=== PATIENT | male | born 1945 | race Caucasian/White ===

== ENCOUNTER 2018-02-02 09:44 | Emergency (ER) | payer BC, MEDICARE ==
[2018-02-02] MEDS ORDERED: Sodium Chloride 0.9% 1000 ML 1,000 ML IV STA (10:13)
--- NOTE | 2018-02-02 10:21 | ERPHSYRPT ---
- History of Present Illness Time Seen by Provider: 02/02/18 10:15 Source: patient Exam Limitations: no limitations Patient Subjective Stated Complaint: pt co dizzness with head pain all over, states he also feels shaky, tingling,pt is currenty being treated for diverticulitis Triage Nursing Assessment: pt walked in, gait steady,skin w/d/p, resp easy, abd soft no edma Physician History: 72-year-old white male arrives with complaint of feeling dizzy when he moves his head states he has a headache when he moves his head symptoms going on since yesterday no fevers. Patient is on Cipro and Flagyl secondary to diverticulitis.. Patient does have a history of chronic pain however he was taken off of his narcotic analgesia in July patient and his spouse states that his family doctor did not want him on this anymore (oxycodone ) past medical history includes COPD, coronary artery disease, diverticulitis, GERD, prostate problems Past surgical history includes cysts right shoulder EGD cholecystectomy Timing/Duration: yesterday Severity: moderate Modifying Factors: Improves With: nothing. Worsens With: other Associated Symptoms: headaches, other (dizzy and headache moves his head around) , No nausea, No vomiting, No shortness of breath, No heartburn, No diaphoresis, No cough, No chest pain, No fever, No loss of appetite, No malaise, No rash, No syncope, No seizure, No weakness Allergies/Adverse Reactions: No Known Drug Allergies Allergy (Verified 02/02/18 09:58) Home Medications: Omeprazole 20 MG [Prilosec 20 mg] 20 mg PO BID 05/20/15 [History] Tamsulosin HCl 0.4 mg [Flomax 0.4 MG] 0.4 mg PO HS 05/20/15 [History] Atorvastatin Calcium [Atorvastatin Calcium] 40 mg DAILY 02/02/18 [History] Ciprofloxacin [Cipro 500 MG] 500 mg BID 02/02/18 [History] Isosorbide Mononitrate [Isosorbide Mononitrate ER] 30 mg DAILY 02/02/18 [History ] Metronidazole [Metronidazole] 500 mg QID 02/02/18 [History] Ondansetron HCl [Ondansetron HCl] 4 mg TID 02/02/18 [History] Primidone [Primidone] 50 mg BID 02/02/18 [History] Hx Tetanus, Diphtheria Vaccination/Date Given: Yes Hx Influenza Vaccination/Date Given: No Hx Pneumococcal Vaccination/Date Given: No - Review of Systems Constitutional: No Fever, No Chills Eyes: No Symptoms Ears, Nose, & Throat: No Symptoms Respiratory: No Cough, No Dyspnea Cardiac: No Chest Pain, No Edema, No Syncope Abdominal/Gastrointestinal: No Abdominal Pain, No Nausea, No Vomiting, No Diarrhea Genitourinary Symptoms: No Dysuria Musculoskeletal: No Back Pain, No Neck Pain Skin: No Rash Neurological: Dizziness, Headache, No Focal Weakness, No Gait Changes, No Irritability, No Lethargy, No Paralysis, No Parasthesia, No Seizure, No Sensory Changes, No Speech Changes, No Tics, No Tremors, No Vertigo Psychological: No Symptoms Endocrine: No Symptoms All Other Systems: Reviewed and Negative - Past Medical History Pertinent Past Medical History: Yes Neurological History: Other ENT History: No Pertinent History Cardiac History: No Pertinent History, Coronary Artery Disease Respiratory History: Bronchitis, COPD Endocrine Medical History: No Pertinent History GI Medical History: Diverticulitis, GERD, Other History: No Pertinent History Psycho-Social History: No Pertinent History Male Reproductive Disorders: Prostate Problems 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 - Past Surgical History Past Surgical History: No Neuro Surgical History: No Pertinent History Cardiac: No Pertinent History Respiratory: No Pertinent History Gastrointestinal: No Pertinent History Genitourinary: No Pertinent History Musculoskeletal: No Pertinent History Male Surgical History: No Pertinent History Other Surgical History: cyst removed from right shoulder and face.colonoscopy and egd - Social History Smoking Status: Current every day smoker How long have you smoked: 60 years Exposure to second hand smoke: Yes Alcohol Use: Socially Drug Use: none Patient Lives Alone: No Significant Family History: other (mother diabetes and hypertension father cancer) - Nursing Vital Signs Nursing Vital Signs: Initial Vital Signs Temperature 97.7 F 02/02/18 09:52 Pulse Rate 72 02/02/18 09:52 Respiratory Rate 18 02/02/18 09:52 Blood Pressure 152/91 02/02/18 09:52 O2 Sat by Pulse Oximetry 99 02/02/18 09:52 Pain Scale Pain Intensity 8 - Physical Exam General Appearance: no apparent distress, alert Eye Exam: PERRL/EOMI, eyes nml inspection Ears, Nose, Throat Exam: normal ENT inspection, TMs normal, pharynx normal, moist mucous membranes Neck Exam: normal inspection, non-tender, supple, full range of motion Respiratory Exam: normal breath sounds, lungs clear, No respiratory distress Cardiovascular Exam: regular rate/rhythm, normal heart sounds, normal peripheral pulses Gastrointestinal/Abdomen Exam: soft, normal bowel sounds, No tenderness, No mass Back Exam: normal inspection, normal range of motion, No CVA tenderness, No vertebral tenderness Extremity Exam: normal inspection, normal range of motion, pelvis stable Neurologic Exam: alert, oriented x 3, cooperative, charge manager II-XII nml as tested, normal mood/affect, nml cerebellar function, nml station & gait, sensation nml, No motor deficits, No sensory deficit, No disoriented, No confusion, No agitation, No uncooperative, No intoxicated appearance, No depressed mood/affect , No motor weakness, No facial droop, No slurred speech, No aphasia, No dysarthria, No abnormal gait, No abnormal cerebellar tests, No abnormal charge manager II- XII, No EOM palsy Skin Exam: normal color, warm, dry, No rash Lymphatic Exam: No adenopathy SpO2 Interpretation: normal (99%) SpO2: 99 Oxygen Delivery: Room Air - Course Nursing assessment & vital signs reviewed: Yes EKG Interpreted by Me: RATE, Sinus Rhythm, NORMAL AXIS, Other (EKG: Sinus rhythm , 71 bpm, normal axis, no acute ST or T wave changes noted) - CT Exams Head CT Interpretation: Tele-radiologist Report (head CT: Impression: 1. No acute intracranial abnormality. 2. Volume loss greater than expected for age query any history of alcohol abuse or certain medications such as dilantin. 3 atherosclerotic vascular disease) Ordered Tests: Active Orders 24 hr Category Date Time Status Accucheck STAT Care 02/02/18 10:13 Active EKG-ER Only STAT Care 02/02/18 10:13 Active IV Insertion STAT Care 02/02/18 10:13 Active Orthostatic Vital Signs STAT Care 02/02/18 10:13 Active HEAD WITHOUT CONTRAST [CT] Stat Exams 02/02/18 10:13 Taken CBC W DIFF Stat Lab 02/02/18 10:30 Completed CMP Stat Lab 02/02/18 10:30 Completed ETHYL ALCOHOL Stat Lab 02/02/18 10:30 Completed SED RATE [Erythrocyte Sedimentation Rate] Stat Lab 02/02/18 10:30 Completed UA W/ MICROSCOPIC Stat Lab 02/02/18 10:50 Results Medication Summary Generic Name Dose Route Start Last Admin Trade Name Kiley PRN Reason Stop Dose Admin Meclizine HCl 12.5 mg 02/02/18 11:33 Antivert 25 Mg PO 02/02/18 11:34 STAT ONE Discontinued Medications Generic Name Dose Route Start Last Admin Trade Name Kiley PRN Reason Stop Dose Admin Sodium Chloride 1,000 mls @ 999 mls/hr 02/02/18 10:13 02/02/18 10:48 Sodium Chloride 0.9% 1000 Ml IV 02/02/18 11:13 999 mls/hr .Q1H1M STA Administration Sodium Chloride Confirm 02/02/18 10:46 Sodium Chloride 0.9% 1000 Ml Administered 02/02/18 10:47 Dose 1,000 mls @ ud .ROUTE .STK-MED ONE Lab/Rad Data: Laboratory Result Diagrams 02/02/18 10:30 02/02/18 10:30 Laboratory Results 02/02/18 02/02/18 02/02/18 Range/Units 10:50 10:30 10:30 WBC (4.0-10.5) K/mm3 RBC (4.1-5.6) M/mm3 Hgb (12.5-18.0) gm/dl Hct (42-50) % MCV (78-100) fl MCH (26-32) pg MCHC (32-36) g/dl RDW (11.5-14.0) % Plt Count (150-450) K/mm3 MPV (6-9.5) fl Gran % (36.0-66.0) % Eos # (Auto) (0-0.5) Absolute Lymphs (auto) (1.0-4.6) Absolute Monos (auto) (0.0-1.3) Lymphocytes % (24.0-44.0) % Monocytes % (0.0-12.0) % Eosinophils % (0.00-5.0) % Basophils % (0.0-0.4) % Absolute Granulocytes (1.4-6.9) Basophils # (0-0.4) ESR 3 (0-15) mm/hr Sodium 136 L (137-145) mmol/L Potassium 4.0 (3.5-5.1) mmol/L Chloride 101 (98-107) mmol/L Carbon Dioxide 27 (22-30) mmol/L Anion Gap 11.4 (5-15) MEQ/L BUN 8 L (9-20) mg/dL Creatinine 0.86 (0.66-1.25) mg/dL Estimated GFR > 60.0 ML/MIN Glucose 95 (74-106) mg/dL Calcium 8.9 (8.4-10.2) mg/dL Total Bilirubin 0.50 (0.2-1.3) mg/dL AST 30 (17-59) U/L ALT 27 (0-50) U/L Alkaline Phosphatase 47 (38-126) U/L Serum Total Protein 6.1 L (6.3-8.2) g/dL Albumin 3.4 L (3.5-5.0) g/dL Ur Collection Type CCMS Urine Color YELLOW (YELLOW) Urine Appearance CLEAR (CLEAR) Urine pH 5.0 (5-6) Ur Specific [place] 1.010 (1.005-1.025) Urine Protein NEGATIVE (Negative) Urine Ketones NEGATIVE (NEGATIVE) Urine Blood NEGATIVE (0-5) Bob/ul Urine Nitrite NEGATIVE (NEGATIVE) Urine Bilirubin NEGATIVE (NEGATIVE) Urine Urobilinogen NORMAL (0-1) mg/dL Ur Leukocyte Esterase TRACE (NEGATIVE) Urine Culture Reflexed Pending Urine Glucose NEGATIVE (NEGATIVE) mg/dL Ethyl Alcohol < 10 (0-10) mg/dL Specimen Received 1050 02/02/18 02/02/18 Range/Units 10:30 WBC 4.3 (4.0-10.5) K/mm3 RBC 4.62 (4.1-5.6) M/mm3 Hgb 15.2 (12.5-18.0) gm/dl Hct 44.0 (42-50) % MCV 95.2 (78-100) fl MCH 32.9 H (26-32) pg MCHC 34.5 (32-36) g/dl RDW 15.4 H (11.5-14.0) % Plt Count 253 (150-450) K/mm3 MPV 9.7 H (6-9.5) fl Gran % 66.7 H (36.0-66.0) % Eos # (Auto) 0.03 (0-0.5) Absolute Lymphs (auto) 0.75 L (1.0-4.6) Absolute Monos (auto) 0.59 (0.0-1.3) Lymphocytes % 17.6 L (24.0-44.0) % Monocytes % 13.8 H (0.0-12.0) % Eosinophils % 0.7 (0.00-5.0) % Basophils % 1.2 (0.0-0.4) % Absolute Granulocytes 2.85 (1.4-6.9) Basophils # 0.05 (0-0.4) ESR (0-15) mm/hr Sodium (137-145) mmol/L Potassium (3.5-5.1) mmol/L Chloride (98-107) mmol/L Carbon Dioxide (22-30) mmol/L Anion Gap (5-15) MEQ/L BUN (9-20) mg/dL Creatinine (0.66-1.25) mg/dL Estimated GFR ML/MIN Glucose (74-106) mg/dL Calcium (8.4-10.2) mg/dL Total Bilirubin (0.2-1.3) mg/dL AST (17-59) U/L ALT (0-50) U/L Alkaline Phosphatase (38-126) U/L Serum Total Protein (6.3-8.2) g/dL Albumin (3.5-5.0) g/dL Ur Collection Type Urine Color (YELLOW) Urine Appearance (CLEAR) Urine pH (5-6) Ur Specific [place] (1.005-1.025) Urine Protein (Negative) Urine Ketones (NEGATIVE) Urine Blood (0-5) Bob/ul Urine Nitrite (NEGATIVE) Urine Bilirubin (NEGATIVE) Urine Urobilinogen (0-1) mg/dL Ur Leukocyte Esterase (NEGATIVE) Urine Culture Reflexed Urine Glucose (NEGATIVE) mg/dL Ethyl Alcohol (0-10) mg/dL Specimen Received - Progress Progress: improved Progress Note: 02/02/18 10:19 72-year-old white male arrives with complaint of feeling dizzy headache symptoms since yesterday. Although he states he has the dizziness and headache with moving his head around he moves his head around wildly while describing his symptoms and does not appear to be in acute distress. Patient is on Flagyl and Cipro secondary to diverticulitis. Will go ahead and obtain CT head sedimentation rates CBC CMP EKG provide IV fluids. Will consider a dose of morphine if necessary. I did review the patient's inspect report looks like he had been on narcotic analgesia from February 26 of last year to July 09 of last year and he states that his family doctor did not want him to continue on this. Will see how patient does after IV fluids. 02/02/18 11:34 Patient's labs all essentially normal sedimentation rate within normal limits. Head CT greater volume loss than would be expected for age consider prior Dilantin use or alcohol use. Otherwise no acute changes on head CT. Patient states he still feels a headache. Will give patient morphine 4 mg IV Plan home with Antivert. Follow-up with patient's family doctor. - Departure Time of Disposition: 11:35 Departure Disposition: Home Clinical Impression: Dizziness Headache Qualifiers: Headache type: unspecified Headache chronicity pattern: acute headache Intractability: not intractable Qualified Code(s): R51 - Headache Condition: Fair Critical Care Time: No Referrals: NEGRO MARTINS MD [Primary Care Provider] - Instructions: Vertigo (a Type of Dizziness) (DC) Additional Instructions: Return home. Plenty of fluids. Tylenol every 4 hours as needed for headache. Antivert 25 mg orally three times a day as needed for dizziness. Follow-up with your family doctor call and arrange an appointment. Return for acute distress or for severe symptoms. Prescriptions: Meclizine HCl 25 mg [Antivert 25 mg] 25 mg PO TID PRN #20 tablet
[2018-02-02 10:39] LABS: BASOPHIL % 1.2 % (0.0-0.4); Basophil (Absolute #) 0.05 (0-0.4); Eosinophil % 0.7 % (0.00-5.0); Eosinophil (Absolute #) 0.03 (0-0.5); Granulocyte Absolute (ANC) 2.85 (1.4-6.9); Granulocytes % 66.7 % (36.0-66.0); Hemoglobin 15.2 gm/dl (12.5-18.0); Lymphocyte (Absolute #) 0.75 (1.0-4.6); Lymphocytes % 17.6 % (24.0-44.0); Mean Cell Volume 95.2 fl (78-100); Mean Corpuscular Hemoglobin 32.9 pg (26-32); Mean Corpuscular Hgb Concent. 34.5 g/dl (32-36); Mean Platelet Volume 9.7 fl (6-9.5); Monocyte (Absolute #) 0.59 (0.0-1.3); Monocytes % 13.8 % (0.0-12.0); Platelet Count 253 K/mm3 (150-450); Red Blood Count 4.62 M/mm3 (4.1-5.6); Red Cell Distribution Width 15.4 % (11.5-14.0); White Blood Count 4.3 K/mm3 (4.0-10.5)
[2018-02-02] MEDS ORDERED: Sodium Chloride 0.9% 1000 ML 1,000 ML ONE (10:46)
[2018-02-02 10:50] LABS: ALBUMIN 3.4 g/dL (3.5-5.0); ALKALINE PHOSPHATASE 47 U/L (38-126); ANION GAP 11.4 MEQ/L (5-15); BLOOD UREA NITROGEN 8 mg/dL (9-20); CHLORIDE 101 mmol/L (98-107); Calcium 8.9 mg/dL (8.4-10.2); Carbon Dioxide 27 mmol/L (22-30); Creatinine 1 0.86 mg/dL (0.66-1.25); Glucose 95 mg/dL (74-106); SGOT/AST 30 U/L (17-59); SGPT/ALT 27 U/L (0-50); SODIUM 136 mmol/L (137-145); Total Protein 6.1 g/dL (6.3-8.2)
[2018-02-02 10:52] LABS: ETHYL ALCOHOL < 10 mg/dL (0-10)
[2018-02-02 10:56] LABS: Appearance CLEAR (CLEAR)
[2018-02-02 10:57] LABS: Bilirubin NEGATIVE (NEGATIVE); Blood NEGATIVE Ery/ul (0-5); Glucose NEGATIVE (NEGATIVE); Ketones NEGATIVE (NEGATIVE); Leukocyte Esterase TRACE (NEGATIVE); Nitrite NEGATIVE (NEGATIVE); Protein,Urine Dip NEGATIVE (Negative); Urobilinogen NORMAL mg/dL (0-1)
[2018-02-02] MEDS ORDERED: ANTIVERT 25 MG PO ONE (11:33)
[2018-02-02] MEDS ORDERED: MORPHINE SULFATE 4 MG INJ IV ONE (11:33)
[2018-02-02] MEDS ORDERED: MORPHINE SULFATE 4 MG INJ ONE (11:36)
[2018-02-02] MEDS ORDERED: ANTIVERT 25 MG ONE (11:36)
[2018-02-02 11:37] LABS: Bacteria FEW /HPF (NEGATIVE); Epithelial Cells FEW /HPF (FEW); Mucus SLIGHT /HPF (NEGATIVE); WBC 0-2 /HPF (0-5)
[2018-02-02 12:54] VITALS: BP 122/75; PULSE 61; O2SAT 95
--- NOTE | 2018-02-02 19:18 | XRAY ---
Indication: Headache and dizziness. Multiple contiguous axial images obtained through the head without contrast. Comparison: None Age-appropriate global atrophy and minimal periventricular degenerative micro-ischemia bilaterally. No acute intracranial hemorrhage, abnormal extra-axial fluid collection, or mass effect. Fourth ventricle is midline without hydrocephalus. Bony calvarium intact. Mild mucosal thickening of both ethmoid sinuses. Mastoid air cells are clear. Impression: Nonacute senile brain. Incidental paranasal sinus disease. Comment: Preliminary interpretation was made by [facility]. No discrepancy. CTDI 69.52
== END 2018-02-02 12:53 | disposition home or self-care (01) ==
LOC: ED 09:44
DX: R42 Dizziness and giddiness (principal); R51 Headache; Z79.899 Other long term (current) drug therapy; K57.92 Diverticulitis of intestine, part unspecified, without perforation or abscess without bleeding
CPT/HCPCS: 36415; 70450; 80053; 80307; 81000; 82962; 85025; 85652; 93005; 96360; 96372; 99284; J2270; A9270-GY; G0480

== ENCOUNTER 2018-02-25 05:42 | Day surgery (SDC) | payer BC, MEDICARE ==
[2018-02-25] MEDS ORDERED: Ketamine HCl 50 MG/ML IJ ONE (05:43)
[2018-02-25] MEDS ORDERED: DIPRIVAN 200 MG/20 ML IV ONE (05:43)
[2018-02-25] MEDS ORDERED: Lactated Ringers 1,000 ML IV SCH (06:30)
[2018-02-25 09:01] VITALS: BP 142/65; PULSE 72
[2018-02-25 09:04] VITALS: O2SAT 99
--- NOTE | 2018-02-25 09:45 | OP ---
SURGERY DATE: 02/25/18 SURGERY TIME: 724 PREOPERATIVE DIAGNOSIS: 1. ABDOMINAL PAIN. POSTOPERATIVE DIAGNOSIS: 1. SESSILE POLYP IN THE SIGMOID COLON. PROCEDURE: 1. Colonoscopy. SURGEON: Dr. Moisés Pena. ANESTHESIA: MAC by Emil Nino CRNA. SPECIMENS: 1. Cold forceps polypectomy of sigmoid colon. ESTIMATED BLOOD LOSS: Minimal. DESCRIPTION OF PROCEDURE: After informed written consent was obtained, the patient was taken to the endoscopy suite. He underwent monitored anesthesia and a digital rectal exam showed normal sphincter tone and no internal lesions. The scope was inserted in the rectum and sequentially the entire colonic mucosa was traversed. The level of the cecum was reached and verified with direct visualization of the ileocecal valve. Upon withdrawal, careful mucosal inspection revealed no gross abnormalities other than a small sessile polyp in the sigmoid colon region. It was grasped with forceps and removed in its entirety with minimal bleeding. The remainder of the exam was unremarkable upon withdrawal. Retroflexion showed no obvious internal lesions. There were some mild internal hemorrhoids noted. The scope was removed and the patient was transferred to the recovery room in good condition.
== END 2018-02-25 08:50 | disposition home or self-care (01) ==
LOC: SDC 05:42
PROVIDERS: ATTEND Family Medicine
DX: R10.9 Unspecified abdominal pain (principal); K63.5 Polyp of colon
CPT/HCPCS: 88305; 99100; J2704

== ENCOUNTER 2018-09-09 09:55 | Observation (INO) | payer BC, MEDICARE ==
[2018-09-09] MEDS ORDERED: DUONEB 0.5-3 MG/3 ml Neb IH ONE (10:18)
[2018-09-09] MEDS: DUONEB 0.5-3 MG/3 ml Neb IH SCH ×4 (10:22→23:55)
[2018-09-09 10:30] LABS: Lactic Acid 2.9 (0.4-2.0)
[2018-09-09] MEDS: solu-MEDROL 125 MG IV SCH ×2 (11:01→17:42)
[2018-09-09] MEDS: ENOXAPARIN SODIUM SQ SCH (11:18)
[2018-09-09] MEDS: TYLENOL 325 MG PO PRN (11:18)
[2018-09-09] MEDS: ROCEPHIN 1 Gm-D5w 50 ml Bag** 1 G/50 ML IVPB IV SCH (11:18)
[2018-09-09] MEDS: Sodium Chloride 0.9% 1000 ML 1,000 ML IV SCH (11:18)
--- NOTE | 2018-09-09 11:21 | XRAY ---
Indication: Acute exacerbation COPD. Comparison: January 15, 2018. PA/lateral chest again demonstrates COPD and CIPD. Remaining heart and lungs unremarkable. Bony thorax intact again with mild degenerative changes. Impression: Stable nonacute chest with chronic features.
[2018-09-09 11:26] LABS: BASOPHIL % 0.3 % (0.0-0.4); Basophil (Absolute #) 0.02 (0-0.4); Eosinophil (Absolute #) 0 (0-0.5); Granulocyte Absolute (ANC) 5.75 (1.4-6.9); Granulocytes % 78.4 % (36.0-66.0); Hematocrit 46.3 % (42-50); Hemoglobin 16.1 gm/dl (12.5-18.0); Lymphocyte (Absolute #) 0.63 (1.0-4.6); Lymphocytes % 8.6 % (24.0-44.0); Mean Cell Volume 98.3 fl (78-100); Mean Corpuscular Hemoglobin 34.2 pg (26-32); Mean Corpuscular Hgb Concent. 34.8 g/dl (32-36); Mean Platelet Volume 9.7 fl (6-9.5); Monocyte (Absolute #) 0.93 (0.0-1.3); Monocytes % 12.7 % (0.0-12.0); Platelet Count 181 K/mm3 (150-450); Red Blood Count 4.71 M/mm3 (4.1-5.6); Red Cell Distribution Width 15.5 % (11.5-14.0); White Blood Count 7.3 K/mm3 (4.0-10.5)
[2018-09-09 11:34] LABS: INFLUENZA A NEGATIVE (NEGATIVE); INFLUENZA B NEGATIVE (NEGATIVE)
[2018-09-09 11:36] LABS: RESPIRATORY SYNCTIAL VIRUS POSITIVE (Negative)
[2018-09-09 11:42] LABS: ALBUMIN 3.9 g/dL (3.5-5.0); ALKALINE PHOSPHATASE 74 U/L (38-126); BLOOD UREA NITROGEN 12 mg/dL (9-20); CHLORIDE 96 mmol/L (98-107); Calcium 8.9 mg/dL (8.4-10.2); Carbon Dioxide 28 mmol/L (22-30); Creatinine 1 0.89 mg/dL (0.66-1.25); Glucose 117 mg/dL (74-106); Potassium 4.5 mmol/L (3.5-5.1); SGOT/AST 24 U/L (17-59); SGPT/ALT 24 U/L (0-50); SODIUM 133 mmol/L (137-145); Total Protein 6.6 g/dL (6.3-8.2)
[2018-09-09] MEDS: Zithromax 500 MG/ 250 ML NaCl Premix 500 MG/250 ML IVPB IV SCH (12:52)
[2018-09-09] MEDS ORDERED: Sodium Chloride 0.9% 500 ML 500 ML IV ONE (13:19)
[2018-09-09 13:26] LABS: ANION GAP 13.5 MEQ/L (5-15)
[2018-09-09 15:24] LABS: Lactic Acid 3.4 (0.4-2.0)
[2018-09-09] MEDS ORDERED: Sodium Chloride 0.9% 1000 ML 1,000 ML IV STA (16:20)
[2018-09-09] MEDS ORDERED: Advair Hfa 230/21 Mcg COMMON CANISTER IH SCH (19:00)
[2018-09-09] MEDS: ADVAIR 500-50 DISKUS IH SCH (19:47)
[2018-09-09] MEDS ORDERED: NON-FORMULARY ITEM (Omeprazole 20 Mg [Prilosec 20 Mg] 20 MG) PO SCH (22:00)
[2018-09-09] MEDS: Flomax 0.4 MG PO SCH (22:28)
[2018-09-09] MEDS: ECOTRIN 81 MG PO SCH (22:29)
[2018-09-09] MEDS: Protonix 40MG Tablet PO SCH (22:29)
[2018-09-09] MEDS: Proscar 5 MG PO SCH (22:29)
[2018-09-09] MEDS: MYSOLINE 50MG PO SCH (22:29)
[2018-09-09] MEDS: ZOCOR 20MG PO SCH (22:29)
[2018-09-10] MEDS: Sodium Chloride 0.9% 1000 ML 1,000 ML IV SCH ×3 (00:16→21:58)
[2018-09-10] MEDS: solu-MEDROL 125 MG IV SCH ×4 (00:20→18:43)
[2018-09-10] MEDS: TYLENOL 325 MG PO PRN ×2 (00:20→16:13)
[2018-09-10] MEDS: DUONEB 0.5-3 MG/3 ml Neb IH SCH ×6 (04:15→23:47)
[2018-09-10] MEDS: Spiriva 18 Mcg/Cap Inhaler IH SCH (07:02)
[2018-09-10] MEDS: ADVAIR 500-50 DISKUS IH SCH ×2 (07:02→19:30)
--- NOTE | 2018-09-10 07:51 | PCM.NOTE ---
Date and Time: 09/10/18 0749 Subjective Assessment: patient reports he is feeling better with his breathing, he feels anxious and is shaking. tylenol not helping with headache Objective Exam General Appearance: no apparent distress, thin Neurologic Exam: alert, oriented x 3 Skin Exam: normal color, warm, dry Respiratory Exam: prolonged expirations, wheezing Cardiovascular Exam: regular rate/rhythm, normal heart sounds Gastrointestinal/Abdomen Exam: soft, No tenderness, No mass Extremity Exam: normal inspection, normal range of motion OBJECTIVE DATA Vital Signs: Vital Signs - 24 hr Temp Pulse Resp BP Pulse Ox 09/10/18 07:29 97.9 F 92 H 20 151/88 94 L 09/10/18 07:08 94 H 20 92 L 09/10/18 04:15 96 H 18 94 L 09/10/18 04:00 97.2 F 88 19 138/82 95 09/10/18 00:00 97.7 F 80 16 133/82 94 L 09/09/18 23:55 90 20 97 09/09/18 20:00 98.1 F 87 19 122/75 96 09/09/18 19:47 82 19 96 09/09/18 16:00 98.3 F 88 20 110/66 94 L 09/09/18 15:03 86 22 93 L 09/09/18 12:00 97.8 F 84 20 98/71 95 09/09/18 10:42 97.8 F 84 20 98/71 95 09/09/18 10:29 84 20 95 Pain Assessment - Last Documented Pain Intensity 5 Pain Scale Used 0-10 Pain Scale Intake and Output: Intake & Output 09/07/18 09/08/18 09/09/18 09/10/18 11:59 11:59 11:59 11:59 Intake Total 4236 Output Total 1800 Balance 2436 Weight 50.1 kg Lab Results: Lab Results-Last 24 Hours 09/09/18 09/09/18 09/09/18 Range/Units 10:30 10:30 10:30 WBC (4.0-10.5) K/mm3 RBC (4.1-5.6) M/mm3 Hgb (12.5-18.0) gm/dl Hct (42-50) % MCV (78-100) fl MCH (26-32) pg MCHC (32-36) g/dl RDW (11.5-14.0) % Plt Count (150-450) K/mm3 MPV (6-9.5) fl Gran % (36.0-66.0) % Eos # (Auto) (0-0.5) Absolute Lymphs (auto) (1.0-4.6) Absolute Monos (auto) (0.0-1.3) Lymphocytes % (24.0-44.0) % Monocytes % (0.0-12.0) % Eosinophils % (0.00-5.0) % Basophils % (0.0-0.4) % Absolute Granulocytes (1.4-6.9) Basophils # (0-0.4) Sodium 133 L (137-145) mmol/L Potassium 4.5 (3.5-5.1) mmol/L Chloride 96 L (98-107) mmol/L Carbon Dioxide 28 (22-30) mmol/L Anion Gap 13.5 (5-15) MEQ/L BUN 12 (9-20) mg/dL Creatinine 0.89 (0.66-1.25) mg/dL Estimated GFR > 60.0 ML/MIN Glucose 117 H (74-106) mg/dL Lactic Acid 2.9 H (0.4-2.0) Calcium 8.9 (8.4-10.2) mg/dL Total Bilirubin 0.80 (0.2-1.3) mg/dL AST 24 (17-59) U/L ALT 24 (0-50) U/L Alkaline Phosphatase 74 (38-126) U/L Serum Total Protein 6.6 (6.3-8.2) g/dL Albumin 3.9 (3.5-5.0) g/dL Influenza Type A Ag NEGATIVE (NEGATIVE) Influenza Type B Ag NEGATIVE (NEGATIVE) RSV (PCR) POSITIVE (Negative) 09/09/18 09/09/18 09/10/18 Range/Units 11:15 15:20 06:32 WBC 7.3 (4.0-10.5) K/mm3 RBC 4.71 (4.1-5.6) M/mm3 Hgb 16.1 (12.5-18.0) gm/dl Hct 46.3 (42-50) % MCV 98.3 (78-100) fl MCH 34.2 H (26-32) pg MCHC 34.8 (32-36) g/dl RDW 15.5 H (11.5-14.0) % Plt Count 181 (150-450) K/mm3 MPV 9.7 H (6-9.5) fl Gran % 78.4 H (36.0-66.0) % Eos # (Auto) 0 (0-0.5) Absolute Lymphs (auto) 0.63 L (1.0-4.6) Absolute Monos (auto) 0.93 (0.0-1.3) Lymphocytes % 8.6 L (24.0-44.0) % Monocytes % 12.7 H (0.0-12.0) % Eosinophils % 0.0 (0.00-5.0) % Basophils % 0.3 (0.0-0.4) % Absolute Granulocytes 5.75 (1.4-6.9) Basophils # 0.02 (0-0.4) Sodium (137-145) mmol/L Potassium (3.5-5.1) mmol/L Chloride (98-107) mmol/L Carbon Dioxide (22-30) mmol/L Anion Gap (5-15) MEQ/L BUN (9-20) mg/dL Creatinine (0.66-1.25) mg/dL Estimated GFR ML/MIN Glucose (74-106) mg/dL Lactic Acid 3.4 H 2.0 (0.4-2.0) Calcium (8.4-10.2) mg/dL Total Bilirubin (0.2-1.3) mg/dL AST (17-59) U/L ALT (0-50) U/L Alkaline Phosphatase (38-126) U/L Serum Total Protein (6.3-8.2) g/dL Albumin (3.5-5.0) g/dL Influenza Type A Ag (NEGATIVE) Influenza Type B Ag (NEGATIVE) RSV (PCR) (Negative) Radiology Exams: Radiology Procedures Category Date Time Status CHEST 2 VIEWS (PA AND LAT) Routine Exams 09/09/18 10:30 Completed Assessment/Plan (1) Acute exacerbation of chronic obstructive pulmonary disease (COPD) Current Visit: Yes Status: Acute Assessment & Plan: improving, still has audible wheezing. continue current management. shaking and anxiety likely exacerbated by albuterol and steroids. Code(s): J44.1 - CHRONIC OBSTRUCTIVE PULMONARY DISEASE W (ACUTE) EXACERBATION
[2018-09-10] MEDS: xanAX 0.5 MG PO PRN ×3 (09:21→21:48)
[2018-09-10] MEDS: MYSOLINE 50MG PO SCH ×2 (09:21→21:47)
[2018-09-10] MEDS: Protonix 40MG Tablet PO SCH ×2 (09:21→21:48)
[2018-09-10] MEDS: Zithromax 500 MG/ 250 ML NaCl Premix 500 MG/250 ML IVPB IV SCH (09:21)
[2018-09-10] MEDS: MOTRIN 600 MG PO PRN ×2 (09:21→21:48)
[2018-09-10] MEDS: Flomax 0.4 MG PO SCH ×2 (09:21→21:47)
[2018-09-10] MEDS ORDERED: Imdur 30 MG PO SCH (10:00)
[2018-09-10] MEDS: ROCEPHIN 1 Gm-D5w 50 ml Bag** 1 G/50 ML IVPB IV SCH (10:33)
[2018-09-10] MEDS: ENOXAPARIN SODIUM SQ SCH (11:48)
[2018-09-10] MEDS: ECOTRIN 81 MG PO SCH (21:47)
[2018-09-10] MEDS: ZOCOR 20MG PO SCH (21:47)
[2018-09-10] MEDS: Proscar 5 MG PO SCH (21:48)
[2018-09-11] MEDS: solu-MEDROL 125 MG IV SCH ×2 (01:17→06:10)
[2018-09-11] MEDS: DUONEB 0.5-3 MG/3 ml Neb IH SCH ×2 (03:59→07:08)
[2018-09-11] MEDS: xanAX 0.5 MG PO PRN (05:17)
[2018-09-11] MEDS: MOTRIN 600 MG PO PRN (05:17)
[2018-09-11 06:09] LABS: BASOPHIL % 0.1 % (0.0-0.4); Basophil (Absolute #) 0.01 (0-0.4); Eosinophil (Absolute #) 0 (0-0.5); Granulocyte Absolute (ANC) 10.82 (1.4-6.9); Granulocytes % 93.9 % (36.0-66.0); Hematocrit 39.6 % (42-50); Hemoglobin 13.6 gm/dl (12.5-18.0); Lymphocyte (Absolute #) 0.28 (1.0-4.6); Lymphocytes % 2.4 % (24.0-44.0); Mean Cell Volume 98.8 fl (78-100); Mean Corpuscular Hemoglobin 33.9 pg (26-32); Mean Corpuscular Hgb Concent. 34.3 g/dl (32-36); Mean Platelet Volume 10.5 fl (6-9.5); Monocyte (Absolute #) 0.42 (0.0-1.3); Monocytes % 3.6 % (0.0-12.0); Platelet Count 194 K/mm3 (150-450); Red Blood Count 4.01 M/mm3 (4.1-5.6); Red Cell Distribution Width 15.8 % (11.5-14.0); White Blood Count 11.5 K/mm3 (4.0-10.5)
[2018-09-11 06:23] LABS: ALBUMIN 2.9 g/dL (3.5-5.0); ALKALINE PHOSPHATASE 55 U/L (38-126); ANION GAP 9.4 MEQ/L (5-15); BLOOD UREA NITROGEN 12 mg/dL (9-20); CHLORIDE 101 mmol/L (98-107); Calcium 8.3 mg/dL (8.4-10.2); Carbon Dioxide 23 mmol/L (22-30); Creatinine 1 0.43 mg/dL (0.66-1.25); Glucose 130 mg/dL (74-106); Potassium 3.9 mmol/L (3.5-5.1); SGOT/AST 18 U/L (17-59); SGPT/ALT 22 U/L (0-50); SODIUM 130 mmol/L (137-145); Total Protein 5.3 g/dL (6.3-8.2)
[2018-09-11] MEDS: ADVAIR 500-50 DISKUS IH SCH (07:08)
[2018-09-11] MEDS: Spiriva 18 Mcg/Cap Inhaler IH SCH ×2 (07:08→07:09)
[2018-09-11 07:22] VITALS: PULSE 75; O2SAT 96
[2018-09-11 07:59] VITALS: BP 161/88
--- NOTE | 2018-09-11 08:56 | PCM.DS ---
Discharge Summary Date of Admission: 09/09/18 10:08 Admitting Physician: NEGRO MARTINS Primary Care Provider: NEGRO MARTINS Allergies Allergies No Known Drug Allergies Allergy (Verified 02/02/18 09:58) Hospital Summary - Hospital Course Hospital Course: patient was admitted form office with cough, wheezing and severe shortness of breath. doing much better, no oxygen required, he is tolerating po and cough/ wheezing are substantially better. - Vitals & Intake/Output Vital Signs: Vital Signs Temperature 98.2 F 09/11/18 07:58 Pulse Rate 75 09/11/18 07:58 Respiratory Rate 20 09/11/18 07:58 Blood Pressure 161/88 09/11/18 07:58 O2 Sat by Pulse Oximetry 96 09/11/18 07:58 Intake & Output: Intake & Output 09/08/18 09/09/18 09/10/18 09/11/18 11:59 11:59 11:59 11:59 Intake Total 4716 4487 Output Total 1800 1600 Balance 2916 2887 Weight 50.1 kg - Lab Result Diagrams: 09/11/18 05:50 09/11/18 05:50 Lab Results-Last 24 Hrs: Lab Results-Last 24 Hours 09/11/18 09/11/18 Range/Units 05:50 05:50 WBC 11.5 H (4.0-10.5) K/mm3 RBC 4.01 L (4.1-5.6) M/mm3 Hgb 13.6 (12.5-18.0) gm/dl Hct 39.6 L (42-50) % MCV 98.8 (78-100) fl MCH 33.9 H (26-32) pg MCHC 34.3 (32-36) g/dl RDW 15.8 H (11.5-14.0) % Plt Count 194 (150-450) K/mm3 MPV 10.5 H (6-9.5) fl Gran % 93.9 H (36.0-66.0) % Eos # (Auto) 0 (0-0.5) Absolute Lymphs (auto) 0.28 L (1.0-4.6) Absolute Monos (auto) 0.42 (0.0-1.3) Lymphocytes % 2.4 L (24.0-44.0) % Monocytes % 3.6 (0.0-12.0) % Eosinophils % 0.0 (0.00-5.0) % Basophils % 0.1 (0.0-0.4) % Absolute Granulocytes 10.82 H (1.4-6.9) Basophils # 0.01 (0-0.4) Sodium 130 L (137-145) mmol/L Potassium 3.9 (3.5-5.1) mmol/L Chloride 101 (98-107) mmol/L Carbon Dioxide 23 (22-30) mmol/L Anion Gap 9.4 (5-15) MEQ/L BUN 12 (9-20) mg/dL Creatinine 0.43 L (0.66-1.25) mg/dL Estimated GFR > 60.0 ML/MIN Glucose 130 H (74-106) mg/dL Calcium 8.3 L (8.4-10.2) mg/dL Total Bilirubin 0.30 (0.2-1.3) mg/dL AST 18 (17-59) U/L ALT 22 (0-50) U/L Alkaline Phosphatase 55 (38-126) U/L Serum Total Protein 5.3 L (6.3-8.2) g/dL Albumin 2.9 L (3.5-5.0) g/dL Slides for Path Review Micro Results-Entire Visit: Microbiology 09/09/18 10:30 Blood Culture - Preliminary Blood NO GROWTH TO DATE 09/09/18 10:50 Blood Culture - Preliminary Blood NO GROWTH TO DATE - Radiology Exams Ordered Rad Exams-Entire Visit: Radiology Procedures Category Date Time Status CHEST 2 VIEWS (PA AND LAT) Routine Exams 09/09/18 10:30 Completed - Procedures and Test Procedures and Tests throughout Hospitalization: Therapy Orders & Screens 09/09/18 10:28 Respiratory Therapy Assessment DAILY Comment: Diagnosis: AE COPD 09/09/18 10:29 Peak Expiratory Flow Rate ONCE Comment: Reason For Exam: Diagnosis: AE COPD 09/09/18 10:30 Respiratory Nebulizer Q4H Comment: duonebs 2.5/0.5mg INH Diagnosis: AE COPD 09/09/18 11:03 Smoking Cessation Education ONCE Comment: Diagnosis: COPD EXACERBATION Smoking Status: Current every day smoker How long have you smoked: 50 YEARS Have you smoked in the past 12 months: Yes Approximately how many cigarettes per day: 5 Do you dip or chew tobacco: No 09/09/18 19:00 Respiratory MDI BID Comment: ADVAIR 500/50 Diagnosis: COPD EXACERBATION Discharge Exam General Appearance: no apparent distress, alert, thin Skin Exam: normal color, warm, dry Respiratory Exam: lungs clear, prolonged expirations, wheezing, No respiratory distress Cardiovascular Exam: regular rate/rhythm Gastrointestinal/Abdomen Exam: soft, No tenderness, No mass Extremity Exam: normal inspection, normal range of motion Final Diagnosis/Problem List - Final Discharge Diagnosis/Problem (1) Acute exacerbation of chronic obstructive pulmonary disease (COPD) Current Visit: Yes Status: Acute Assessment & Plan: home on po doxy and prednisone taper (2) Anxiety Current Visit: Yes Status: Acute Assessment & Plan: tremor seems anxiety related, worsened with steroids and nebs. much better with treatment with xanax, will continue on discharge (3) Tremor Current Visit: Yes Status: Acute - Discharge Disposition: Home, Self-Care Condition: Stable Prescriptions: New Prednisone 20 mg [Deltasone 20 mg] 20 mg PO UD #18 tablet Doxycycline Hyclate 100 mg [Vibramycin 100 MG] 100 mg PO BID #14 tab Alprazolam 0.25 mg [xanAX 0.25 MG] 0.25 mg PO BID PRN #60 tablet Continue Omeprazole 20 MG [Prilosec 20 mg] 20 mg PO BID Tamsulosin HCl 0.4 mg [Flomax 0.4 MG] 0.4 mg PO BID Albuterol Sulfate [Proair Hfa] 2 puff IH Q4H PRN #0 [id number] PRN Reason: Shortness Of Breath/Wheezing Tiotropium [place] [Spiriva Respimat] 2 inh IH DAILY #0 mist.inhal Primidone 50 mg PO BID Isosorbide Mononitrate [Isosorbide Mononitrate ER] 30 mg PO DAILY Atorvastatin Calcium 40 mg PO HS Finasteride [Proscar] 5 mg PO HS Trazodone HCl 50 mg [Desyrel 50 mg] 50 mg PO HS Calcium Carbonate/Vitamin D3 [Calcium 600-Vit D3 800 Tablet] 1 each PO DAILY Fluticasone/Salmeterol 500/50* [Advair 500-50 Diskus] 2 inh IH BID Aspirin [Ecotrin] 81 mg PO HS #0 Albuterol 2.5 mg/3 ml Neb [Proventil 2.5 mg/3 ml Neb] 2.5 mg IH Q4H PRN PRN Reason: breathing Instructions: Bronchiolitis (and RSV), Respiratory Syncytial Virus, Adult (DC) , Quitting Smoking Follow up with: NEGRO MARTINS MD [Primary Care Provider] - 1 Week
== END 2018-09-11 09:35 | disposition home or self-care (01) ==
LOC: MED SURG 10:08
PROVIDERS: ADMIT Family Medicine; ATTEND Family Medicine
DX: J44.1 Chronic obstructive pulmonary disease with (acute) exacerbation (principal); K44.9 Diaphragmatic hernia without obstruction or gangrene; N40.0 Benign prostatic hyperplasia without lower urinary tract symptoms
CPT/HCPCS: 36415; 71046; 80053; 83605; 85025; 87040; 87631; 94150; 94640; 94760; G0378; J0456; J0696; J1650; J2930; A9270-GY

== ENCOUNTER 2022-03-22 14:05 | Emergency (ER) | payer BC, MEDICARE ==
--- NOTE | 2022-03-22 14:09 | ERPHSYRPT ---
- History of Present Illness Time Seen by Provider: 03/22/22 14:08 Source: patient, family Exam Limitations: no limitations Physician History: This is a 76-year-old white male patient of Dr. Martins who 3 weeks ago fell onto his buttock. He did not seek out medical care or x-rays because he felt that the symptoms would improve. However his spouse noticed that the pain was not getting any better and therefore they are here for further evaluation and management. Patient is a current daily smoker of cigarettes. He has a history of gastroesophageal reflux disease. He has a history of coronary disease and COPD. He has prostate issues as well. He has a history of elevated cholesterol. His pain is not in the back. It is more in the buttock/coccyx region per his report. He is having trouble sitting and laying flat in the supine position for a long period of time. Timing/Duration: week(s) (3 weeks ago the patient fell onto his buttock) Method of Injury: fall Back Pain Location: coccyx Severity of Pain-Max: moderate Severity of Pain-Current: moderate Modifying Factors: Improves With: movement Associated Symptoms: No urinary incontinence, No loss of bowel control, No problems urinating, No numbness in legs/feet, No weakness, No sensory/motor loss, No lower back pain, No muscle spasms Previous symptoms: no prior history Allergies/Adverse Reactions: No Known Drug Allergies Allergy (Verified 03/22/22 14:40) Home Medications: Omeprazole 20 MG [Prilosec 20 mg] 20 mg PO BID 05/20/15 [History] Tamsulosin HCl 0.4 mg [Flomax 0.4 MG] 0.4 mg PO BID 05/20/15 [History] Atorvastatin Calcium 40 mg PO HS 02/02/18 [History] Isosorbide Mononitrate [Isosorbide Mononitrate ER] 30 mg PO DAILY 02/02/18 [History] Calcium Carbonate/Vitamin D3 [Calcium 600-Vit D3 800 Tablet] 1 each PO DAILY 02/17/18 [History] Finasteride [Proscar] 5 mg PO HS 02/17/18 [History] Albuterol 2.5 mg/3 ml Neb [Proventil 2.5 mg/3 ml Neb] 2.5 mg IH Q4H PRN 09/09/18 [History] ALPRAZolam 0.25 MG [xanAX 0.25 MG] 0.25 mg PO Q12H 03/22/22 [History] AMITRIPTYLINE HCL 50 mg Tab [AMITRIPTYLINE HCL 50 mg Tablet] 50 mg PO HS 03/22/22 [History] Albuterol Sulfate [Albuterol Sulfate Hfa] 2 inh PO UD 03/22/22 [History] Bumetanide 0.5 mg PO DAILY 03/22/22 [History] Carbidopa/Levodopa [Carbidopa-Levodopa 25-250 Tab] 2 tab PO QID 03/22/22 [History] Famotidine [Pepcid] 40 mg PO DAILY 03/22/22 [History] Fluticasone/Umeclidin/Vilanter [Trelegy Ellipta 200-62.5-25] 1 inh PO DAILY 03/22/22 [History] Ropinirole HCl 1 mg PO UD 03/22/22 [History] Smz/Tmp Ds Tablet [Bactrim Ds Tablet] 1 tab PO DAILY 03/22/22 [History] dronabinoL [Dronabinol] 5 mg PO BID 03/22/22 [History] Hx Tetanus, Diphtheria Vaccination/Date Given: Yes Hx Influenza Vaccination/Date Given: No Hx Pneumococcal Vaccination/Date Given: No Travel Risk - International Travel Have you traveled outside of the country in past 3 weeks: No - Coronavirus Screening Are you exhibiting any of the following symptoms?: No Close contact with a COVID-19 positive Pt in past 14-21 Days: No - Review of Systems Constitutional: No Symptoms Eyes: No Symptoms Ears, Nose, & Throat: No Symptoms Respiratory: No Symptoms Cardiac: No Symptoms Abdominal/Gastrointestinal: No Symptoms Genitourinary Symptoms: No Symptoms Musculoskeletal: Fall (3 weeks ago), Injury (Buttock/coccyx region) Skin: No Symptoms Neurological: No Symptoms Psychological: No Symptoms Endocrine: No Symptoms Hematologic/Lymphatic: No Symptoms Immunological/Allergic: No Symptoms All Other Systems: Reviewed and Negative - Past Medical History Pertinent Past Medical History: Yes Neurological History: Other ENT History: No Pertinent History Cardiac History: Coronary Artery Disease Respiratory History: Bronchitis, COPD Endocrine Medical History: No Pertinent History Musculoskeletal History: No Pertinent History GI Medical History: Diverticulitis, GERD, Other History: No Pertinent History Psycho-Social History: No Pertinent History Male Reproductive Disorders: Prostate Problems 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 - Past Surgical History Past Surgical History: No Neuro Surgical History: No Pertinent History Cardiac: Cardiac Catheterization Respiratory: Other Gastrointestinal: No Pertinent History Genitourinary: No Pertinent History Musculoskeletal: Other Male Surgical History: No Pertinent History Other Surgical History: cyst removed from right shoulder and face.colonoscopy and egd skin CA removed and hand surgery with pins. LUNG BIOPSY - Social History Smoking Status: Current every day smoker How long have you smoked: 50 YEARS Exposure to second hand smoke: Yes Alcohol Use: Socially Drug Use: none Patient Lives Alone: No Significant Family History: other (mother diabetes and hypertension father cancer) - Nursing Vital Signs Nursing Vital Signs: Initial Vital Signs Temperature 98.4 F 03/22/22 14:27 Pulse Rate 82 03/22/22 14:27 Blood Pressure 100/65 03/22/22 14:27 O2 Sat by Pulse Oximetry 96 03/22/22 14:27 Pain Scale Pain Intensity [Posterior 8 Medial Distal Back] Pain Intensity 8 - Physical Exam General Appearance: no apparent distress, alert, anxiety Eye Exam: PERRL/EOMI, eyes nml inspection Ears, Nose, Throat Exam: normal ENT inspection, moist mucous membranes Neck Exam: normal inspection, non-tender, supple, full range of motion Respiratory Exam: airway intact, No chest tenderness, No respiratory distress Gastrointestinal Exam: No tenderness Rectal Exam: not done Back Exam: normal inspection, normal range of motion, other (Painful coccyx to palpation), No CVA tenderness, No vertebral tenderness Extremity Exam: normal inspection, normal range of motion, pelvis stable Neurologic Exam: alert, oriented x 3, cooperative, motor 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 03/22/22 15:34 Medical decision making: This patient has been ambulating without difficulty for 3 weeks. His discomfort is localized into the sacral/coccyx region. He has no evidence of any neurologic compromise. And there is only mild anterior angulation. We will provide the patient with pain control as well as rest and, since it is Friday, we will have him follow-up in our [facility] orthopedic clinic on Friday morning, 03/25/2022, for further evaluation and management. Counseled pt/family regarding: diagnosis, need for follow-up, rad results - Departure Clinical Impression: Sacral fracture, closed Condition: Stable Critical Care Time: No Referrals: NEGRO MARTINS MD [ACTIVE STAFF] - Follow up/PCP as directed Additional Instructions: Ice pack to the area of tenderness 2-3 times a day for the next 3 days. Take your pain medicine as prescribed. Bed rest except bathroom privileges are okay. Avoid prolonged sitting and laying supine. Follow-up on 03/25/2022, at 8 AM at the [facility] orthopedic walk-in clinic. You do not need an appointment. Prescriptions: Oxycodone HCl/Acetaminophen [Percocet 5-325 mg Tablet] 1 each PO Q8H PRN PRN #9 tablet MDD 3 PRN Reason: Moderate To Severe Pain
[2022-03-22 14:40] VITALS: BP 100/65; PULSE 82; O2SAT 96
--- NOTE | 2022-03-22 15:10 | XRAY ---
Indication: Pain following fall. Comparison: None 3 view sacrum/coccyx demonstrates mild anterior angulated mid sacrum fracture best seen on lateral view. Elsewhere age-related osteopenia, scattered vascular calcifications, and mild fecal stasis.
[2022-03-22] MEDS ORDERED: PERCOCET TABLET 5/325MG PO STA (15:40)
[2022-03-22] MEDS ORDERED: PERCOCET TABLET 5/325MG ONE (15:45)
== END 2022-03-22 16:14 | disposition home or self-care (01) ==
LOC: ED 14:05
DX: S32.10XA Unspecified fracture of sacrum, initial encounter for closed fracture (principal); W19.XXXA Unspecified fall, initial encounter; J44.9 Chronic obstructive pulmonary disease, unspecified; E78.5 Hyperlipidemia, unspecified; Z72.0 Tobacco use; Z79.899 Other long term (current) drug therapy; Z79.891 Long term (current) use of opiate analgesic
CPT/HCPCS: 72220; 99283; A9270-GY